=== PATIENT | female | born 1940 | race Caucasian/White ===

== ENCOUNTER → 2017-09-09 | Outpatient (CLI) | payer MEDICARE, OTHER ==
[2017-09-09 17:04] LABS: Basophils # (A) 0.1 k/uL (0-0.2); Basophils % (A) 1 %; Eosinophils # (A) 0.2 k/uL (0-0.7); Eosinophils % (A) 4 %; HCT 38.5 % (34.0-46.0); HGB 13.2 gm/dL (11.4-16.0); Lymphocytes # (A) 1.3 k/uL (1.0-4.8); Lymphocytes % (A) 29 %; MCH 31.5 pg (25.0-35.0); MCHC 34.2 g/dL (31.0-37.0); Mean Platelet Volume 6.3; Monocytes # (A) 0.3 k/uL (0-1.0); Monocytes % (A) 6 %; Neutrophils # (A) 2.7 k/uL (1.3-7.7); Neutrophils % (A) 59 %; Platelet Count 287 k/uL (150-450); RBC 4.18 m/uL (3.80-5.40); RDW 12.1 % (11.5-15.5); WBC 4.6 k/uL (3.8-10.6)
[2017-09-09 17:18] LABS: C Reactive Protein <5.0 mg/L (<10.0); Uric Acid 4.4 mg/dL (3.7-7.4)
[2017-09-09 18:56] LABS: Erythrocyte Sedimentation Rate 8 mm/hr (0-20)
[2017-09-10 01:49] LABS: Rheumatoid Factor 33 IU/mL (0-15)
[2017-09-10 11:18] LABS: HLA B27 NEGATIVE
== END | disposition home or self-care (01) ==
LOC: LABWHC1 16:16
PROVIDERS: ATTEND Orthopaedic Surgery
DX: M25.50 Pain in unspecified joint (principal)
CPT/HCPCS: 36415; 84550; 85025; 85652; 86038; 86140; 86431; 86812

== ENCOUNTER → 2022-04-04 | Outpatient (CLI) | payer MEDICARE, OTHER ==
--- NOTE | 2022-04-04 19:17 | CT ---
EXAMINATION TYPE: CT iac wo con DATE OF EXAM: 04/04/2022 COMPARISON: None HISTORY: Left hearing loss, tinnitus CT DLP: 150 mGycm Automated exposure control for dose reduction was used. Contrast: None Technique: Axial images 1 mm thick sections. Reconstructed images in the coronal plane. Study is perf ormed without intravenous contrast. FINDINGS: Internal auditory canals appear symmetrical without expansion or erosion. Semicircular canals are nor mal. Cochlea are normal. Incus and malleus have normal orientation. Mastoid air cells are clear. Midd le ears are clear. External auditory canals are unremarkable. Cerebellar pontine angles are clear as visualized. Paranasal sinuses are clear. There is been prior uncinectomies and ethmoidectomies. IMPRESSION: 1. NO SUSPICIOUS ABNORMALITY TO ACCOUNT FOR LEFT EAR HEARING LOSS
== END | disposition home or self-care (01) ==
LOC: RADCTMAIN 12:12
PROVIDERS: ATTEND Otolaryngology
DX: H93.19 Tinnitus, unspecified ear (principal); H91.90 Unspecified hearing loss, unspecified ear
CPT/HCPCS: 70480